=== PATIENT | female | born 1940 | race Caucasian/White ===

== ENCOUNTER 2021-06-06 14:22 | Outpatient (CLI) | payer MEDICARE, SELFPAY ==
[2021-06-06 14:40] VITALS: BP 111/56; PULSE 92; RESP 18; TEMP 37.1; O2SAT 92; BMI 24.0
[2021-06-06] MEDS: 0.9% Saline Lock 10 ML Syringe IV (14:40)
[2021-06-06 15:23] VITALS: BP 106/59; PULSE 65; RESP 16; TEMP 37.1; O2SAT 93
[2021-06-06 16:23] VITALS: BP 107/56; PULSE 84; RESP 16; TEMP 36.9; O2SAT 100
== END 2021-06-06 16:25 | disposition home or self-care (01) ==
LOC: ICUOUT 14:23 → MS2 14:23
PROVIDERS: PCP Physician Assistant; Referring Provider Nurse Practitioner Adult Health; Visit Provider Nurse Practitioner Adult Health
DX: Z23 Encounter for immunization (principal); U07.1 COVID-19
CPT/HCPCS: J7050; M0243; A4216; Q0244

== ENCOUNTER 2024-10-04 13:00 | Outpatient (RCR) | payer MEDICARE, SELFPAY ==
--- NOTE | 2024-09-02 15:43 | HP.PTEVAL ---
Patient's Visit Information Visit Information Visit Information: ANKIT SINGH is a 84 year old F referred to Physical Therapy by KEYSHA Padgett with a diagnosis of BPPV. Date of Evaluation: 09/02/24 Physical Therapist: Herminio Britt, DPT, OCS, CSCS Visit Plan Frequency: 1-2x /Week Duration: 4-6 Weeks Plan: 1-2x/week for 2-4 weeks for 1. positional and adaptation and balance ex as needed.Oculomotor as needed Today: R modified ashly x 2 and instruct on expectations. and safety. Subjective Subjective: Goes by PEG. Got vertigo after an infection Aug 08. Went to ER, got meclizine. Went to see doctor 11 days later and most of those days were bed ridden. [place] better and then got foggy. Needed cane to ambulate at the time adn still does. Saw doctor 08/19 and said eyes were moving. Did get an antibiotic and then was doing better. Went on a bus trip 2 days ago and got wr= orse again lightheaded. [place] 80% better before bus trip Thursday and now feels tired and needs 2 dramamines again instead of one. Sleep is normal for her. not employed. Basic ALDS are good now with cane. enjoys crocheting and reading and minimal housework, avoids sweeping now due to head movements. 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 Gets dizzy with lying for a few seconds. Objective Objective: Walks into PT with cane mod I, without cane is wobbly with challenges. [facility], steps recirpocal with one rail. cervical AROM limited to R rotation which she says is normal for her. UE aROM WFL. - L HD + R HD for up torsional 20 scond nystagmus and dizzyness. Treated with modified R ashly and then improved HD. Balance/Special Test Scores Functional Gait Assessment Score: 22 % Disability: 26.6700 Dizziness Score: 44 Goals Goal 1:: Abolish vertigo with head movements Goal Time Frame: 4-6 Weeks Goal 2:: FGA score 25/30 to reduce fall risk Goal Time Frame: 4-6 Weeks Goal 3:: Pt feel activities are back to normal without hesitation Goal Time Frame: 4-6 Weeks Goal 4:: DHI score 6 or less Goal Time Frame: 4-6 Weeks Rehabilitation Potential Physical Therapy Diagnosis: Dizzyness and imbalance effecting mobiity. Rehabilitation Potential: Good Anticipated Interventions Patient/Client Instruction: Educate patient on: Condition and Risk Factors For the Purpose of:: To increase tolerance to activity/condition/position and To improve gait and locomotor functions Comment: Positional and adaptation ex For the Purpose of:: To increase tolerance to activity/condition/position and To improve gait and locomotor functions Text: Thank you for the opportunity to evaluate your patient. For Medicare and Medicare HMO plans, please review the plan of care and approve it. It will need to be FAXED BACK to us at [phone] for Medicare purposes. For Medicare only, by signing this I certify the plan of care. Please let me know if there are questions or concerns regarding this plan of care. Physician Signature: Date:
--- NOTE | 2024-10-04 13:32 | HP.PTDCSUM ---
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 Discharge Date: Please see the following information for a summary of their discharge status. Subjective Subjective: Not sure how she is doing .. I think actual dizzyness is gone. Feels out of breath at times. Still feels lightheaded in top part of head at times. Fell one time 09/22 as birds flew out at her, she was using her cane and fell and hard time getting up . Doing exercises and feels lightheaded after them consistently. [place] great after going to chiropractor one day. No other falls. Sinus has been full. Has been to ER 2x with allergies to meds. (antibiotics). Still has infection in sinus that she is dealing with. Saw doctor after hospital visit from allergic reaction last week. HEP: going well but not improving. No spinning lately Overall Improvement % Improvement: 70 Objective Objective/Function: improving balance - B hallpike annika adn roll test oculomotor is unremarkable and VOR still the main problem but just slight lightheadedfeeling over eyes but not improving with 3 weeks of ex. fatigues quickly and this is her concern. She does not have obvious vestibular deficits sticking out effecting her funcitonallya nd present possibly as active infection that she is woring through. will consider this with doctor if does not continue to improve. Goals Goal 1:: Abolish vertigo with head movements Goal Progress: Goal Met Goal 2:: FGA score 25/30 to reduce fall risk Goal Progress: Goal Met Goal 3:: Pt feel activities are back to normal without hesitation Goal Progress: Goal Met Goal 4:: DHI score 6 or less Goal Progress: Progressing Plan Plan: d/cc, pt to contact doctor if situation does not continue to improve. D/C Information d/c sentence: If there are questions or concerns regarding this patient's physical therapy, please feel free to call me at [phone]. Thank you for the referral of this patient. Sincerely, Herminio Britt, DPT, OCS, CSCS Balance/Gait/Functional tests Balance/Special Test Scores Functional Gait Assessment Score: 26 % Disability: 13.3400 Dizziness Score: 14 Improvement % Improvement: 70
== END 2024-10-04 19:00 | disposition home or self-care (01) ==
LOC: PT 13:00
PROVIDERS: PCP Physician Assistant; Referring Provider Clinical Nurse Specialist Adult Health; Visit Provider Clinical Nurse Specialist Adult Health
DX: H81.10 Benign paroxysmal vertigo, unspecified ear (principal)
CPT/HCPCS: 97161; 97530